=== PATIENT | male | born 1965 | race Caucasian/White ===

== ENCOUNTER 2016-08-11 05:47 | Day surgery (SDC) | payer OTHER ==
[~2016-08-11] VITALS: Ht 172.7 cm; Wt 90.7 kg
[2016-08-11] VITALS (7 sets, daily range): BP systolic 113–154; BP diastolic 54–79
[2016-08-11] MEDS ORDERED: LR 1,000 ML IV SCH ×2 (06:15→11:30)
[2016-08-11] MEDS ORDERED: dexameTHASONE 4 MG/ML 1ML VIAL (J1100) IV ONE (06:15)
[2016-08-11] MEDS ORDERED: CEFUROXIME SODIUM 1.5 GM in D5W MINI-BAG PLUS 50 ML IV ONE (06:15)
[2016-08-11] MEDS ORDERED: MIDAZOLAM INJ 2 MG/2 ML VIAL (J2250) As Ordered ONE (07:13)
[2016-08-11] MEDS ORDERED: fentaNYL 250 MCG/5 ML INJECTION (J3010) As Ordered ONE (07:14)
[2016-08-11] MEDS ORDERED: LIDOCAINE 2% INJ 100 MG/5 ML SDV (FOR ANES.) As Ordered ONE (07:15)
[2016-08-11] MEDS ORDERED: PROPOFOL 200 MG/20 ML VIAL As Ordered ONE ×2 (07:16→09:22)
[2016-08-11] MEDS ORDERED: ROCURONIUM BROMIDE 50 MG/5 ML VIAL As Ordered ONE (07:17)
[2016-08-11] MEDS ORDERED: REMIFENTANIL 1MG 3ML VIAL As Ordered ONE (07:20)
[2016-08-11] MEDS ORDERED: THROMBIN SOLN 20,000 UNITS KIT As Ordered ONE (07:40)
[2016-08-11] MEDS ORDERED: BACITRACIN PWD 50,000 UNITS VIAL As Ordered ONE (07:40)
[2016-08-11] MEDS ORDERED: dexameTHASONE 4 MG/ML 1ML VIAL (J1100) As Ordered ONE (08:16)
[2016-08-11] MEDS ORDERED: METOCLOPRAMIDE INJ 10MG/2ML VIAL (J2765) As Ordered ONE (08:18)
[2016-08-11] MEDS: CARISOPRODOL 350 MG TAB PO SCH ×3 (09:00→21:00)
[2016-08-11] MEDS ORDERED: ePHEDrine SULFATE 25 MG/5 ML(5MG/ML) SYRINGE As Ordered ONE ×2 (09:03→09:29)
[2016-08-11] MEDS ORDERED: ONDANSETRON 4MG/2ML VIAL (J2405) As Ordered ONE (09:40)
[2016-08-11] MEDS ORDERED: HYDROmorphone HCL 2 MG/ML 1ML VIAL (J1170) As Ordered ONE (09:50)
[2016-08-11] MEDS ORDERED: fentaNYL 100 MCG/2 ML INJECTION (J3010) As Ordered ONE (10:54)
[2016-08-11] MEDS: fentaNYL 100 MCG/2 ML INJECTION (J3010) IV PRN ×4 (11:05→11:20)
[2016-08-11] MEDS ORDERED: PERCOCET 5MG/325MG TAB As Ordered ONE (11:28)
[2016-08-11] MEDS ORDERED: PERCOCET 5MG/325MG TAB PO PRN ×2 (11:30→13:15)
[2016-08-11] MEDS ORDERED: ONDANSETRON 4MG/2ML VIAL (J2405) IV PRN ×2 (11:30→11:45)
[2016-08-11] MEDS ORDERED: MORPHINE 2 MG/ML 1ML SYRINGE IV PRN (11:30)
[2016-08-11] MEDS ORDERED: MORPHINE 4 MG/ML 1ML SYRINGE IV PRN (11:45)
[2016-08-11] MEDS ORDERED: NORCO, ANEXSIA 5/325MG TABLET (HYDROcodone/ACETAMINOPHEN) PO PRN ×2 (11:45)
[2016-08-11] MEDS ORDERED: ACETAMINOPHEN TAB 650MG DOSE (2X325MG) PO PRN (11:45)
[2016-08-11] MEDS: KCL 20MEQ IN D5/0.45NS 1000ML 1,000 ML IV SCH ×2 (12:43→21:45)
[2016-08-11] MEDS: PERCOCET 5MG/325MG TAB PO PRN ×2 (15:05→18:59)
[2016-08-11] MEDS: CEFUROXIME SODIUM 750 MG in D5W MINI-BAG PLUS 50 ML IV SCH ×2 (15:53→23:49)
--- NOTE | 2016-08-11 16:45 | REP ---
Partial thoracic spine series: Single view: History: Permanent dorsal column stimulator. 31.4 seconds of fluoroscopy time is reported. Findings: A single frontal view of the lower thoracic spine documents dorsal column stimulator lead placement. Signed by Nura Alexander MD 08/11/2016 06:06 P
[2016-08-12 00:04] VITALS: BP 114/59
[2016-08-12 04:11] VITALS: BP 108/55
[2016-08-12 08:00] VITALS: BP 117/57
[2016-08-12] MEDS: CEFUROXIME SODIUM 750 MG in D5W MINI-BAG PLUS 50 ML IV SCH (08:15)
[2016-08-12] MEDS: CARISOPRODOL 350 MG TAB PO SCH ×2 (08:16→10:21)
[2016-08-12] MEDS: PERCOCET 5MG/325MG TAB PO PRN (08:20)
[2016-08-12] MEDS ORDERED: CARI350T20 PO (09:17)
[2016-08-12] MEDS ORDERED: ACET30TAB PO (09:17)
[2016-08-12] MEDS ORDERED: KEFL500C7 PO (09:20)
[2016-08-12] MEDS ORDERED: SOMA350T PO (11:28)
--- NOTE | 2016-08-13 09:52 | RO ---
DATE OF PROCEDURE: 08/11/2016 PREOPERATIVE DIAGNOSES: Chronic back and leg pain. POSTOPERATIVE DIAGNOSES: Chronic back and leg pain. PROCEDURE: Placement of a spinal dorsal column stimulator. SURGEON: Dr. Vicente Griffith CRISIS COUNSELOR: ELISHA Hurtado ANESTHESIA: General endotracheal. DESCRIPTION OF PROCEDURE: After satisfactory general endotracheal anesthesia established, the patient positioned prone on the operating table bordered by two ventral horizontal chest rolls. The thoracolumbar was thoroughly prepped and widely draped in a sterile fashion. Attention first directed to the left lower posterior flank region, where a 6 cm transverse incision was made through subcutaneous fat tissue. Using the template as a guide, a pocket for the pulse generator was created at a depth of about 2.5 cm under the skin. Meticulous hemostasis was obtained and then the wound packed with wet sponges. Attention then directed to the thoracic midline incision, which had been determined using fluoroscopy prior to draping. The T9-T10 levels had been identified, and the incision was made extending from above the spinous process of T8 to below the spinous process of T9. A self-retaining retractor inserted in the thoracic fascia, incised along the spinous processes, paraspinal muscles dissected laterally. A self-retaining bilateral retractor was placed, and a placed at what was thought to be the inferior margin of the T9 lamina. This was confirmed with x-ray and then double-action rongeur used to remove a portion of the inferior spinous process at T8 and superior spinous process at T9. Ligamentum flavum dissected from the undersurface of the lamina, and then a small laminectomy carried out of the inferior portion of T8 and superior portion of T9. The epidural plastic dissector was then carefully advanced beneath the lamina and carefully advanced superiorly without encountering any resistance. This was then removed, and the spinal electrode advanced carefully in similar fashion. It was thought to be in almost satisfactory position with the first pass, and only a slight adjustment in cranial caudal direction was necessary. Once a proper placement of the electrode , the electrode impedances were tested and all found to be satisfactory. Stimulation of the electrode also found to be satisfactory as recorded through the spinal monitoring apparatus. Anchoring collars were then passed over the first and fourth electrode wires, which were anchored to the T10 spinous process using 2-0 silk. Electrode position again checked and found to be satisfactory. Subcutaneous tunnel then developed from the inferior extent of the thoracic incision to the medial aspect of the pulse generator incision, and the wires were passed. The first wire was coiled in the pulse generator pocket and then connected to the pulse generator. Satisfactory function was then confirmed wirelessly. Both incision irrigated, and meticulous hemostasis obtained with bipolar cautery. The flank incision closed using 0 Vicryl for the deep adipose closure and 3-0 Vicryls for the subcutaneous closure. Skin edges approximated with Dermabond. The thoracic incision closed using 0 Vicryl for the muscle and thoracic fascia closure. 0 Vicryl used for subcutaneous closure and skin approximated with Dermabond. The patient then taken to the recovery room, where he was examined and found to be moving both lower extremities with strength to command, having tolerated the procedure well.
[2016-08-13] MEDS ORDERED: OXYC1TAB23 PO (13:07)
== END 2016-08-12 11:45 | disposition home or self-care (01) ==
LOC: M SDC 05:47 → M PED 12:20 → M SDC 08-12 11:45
PROVIDERS: ATTEND Neurological Surgery
DX: M54.16 Radiculopathy, lumbar region (principal); G89.29 Other chronic pain; M96.1 Postlaminectomy syndrome, not elsewhere classified; M79.604 Pain in right leg; M79.605 Pain in left leg; F12.90 Cannabis use, unspecified, uncomplicated; Z98.1 Arthrodesis status; Z87.891 Personal history of nicotine dependence
CPT/HCPCS: 63655; 63685; 77002; 96374; A6024; C1767; C1820; J0697; J1100; J1170; J2250; J2405; J2765; J3010

== ENCOUNTER 2017-02-08 10:53 | Day surgery (SDC) | payer BC, OTHER ==
[~2017-02-08] VITALS: Ht 172.7 cm; Wt 98.0 kg
[~2017-02-08 10:53] MED LIST: ACET30TAB PO; CARI350T PO; KEFL500C17 PO; OXYC1TAB23 PO; SOMA350T PO
[2017-02-08] MEDS ORDERED: LIDOCAINE 1% MDV 20ML VIAL SC PRN (11:15)
[2017-02-08] MEDS ORDERED: LR 1,000 ML IV ONE (11:15)
[2017-02-08] MEDS ORDERED: BACITRACIN PWD 50,000 UNITS VIAL As Ordered ONE (14:34)
[2017-02-08] MEDS ORDERED: BACITRACIN OINT 30GM As Ordered ONE (14:34)
[2017-02-08] MEDS ORDERED: BUPIVACAINE LIPOSOME/PF 1.3% 20 ML VIAL (13.3MG/ML)(EXPAREL) As Ordered ONE (14:35)
[2017-02-08] MEDS ORDERED: BUPIVACAINE HCL 0.5% 10 ML VIAL As Ordered ONE (14:35)
[2017-02-08] MEDS ORDERED: LIDOCAINE 2% MDV 20 ML VIAL As Ordered ONE (15:00)
[2017-02-08] MEDS ORDERED: LIDOCAINE 2% INJ 100 MG/5 ML SDV (FOR ANES.) As Ordered ONE (15:09)
[2017-02-08] MEDS ORDERED: MIDAZOLAM INJ 2 MG/2 ML VIAL (J2250) As Ordered ONE (15:09)
[2017-02-08] MEDS ORDERED: ONDANSETRON 4MG/2ML VIAL (J2405) As Ordered ONE (15:09)
[2017-02-08] MEDS ORDERED: fentaNYL 100 MCG/2 ML INJECTION (J3010) As Ordered ONE (15:09)
[2017-02-08] MEDS ORDERED: PROPOFOL 200 MG/20 ML VIAL As Ordered ONE (15:19)
[2017-02-08 15:55] VITALS: BP 135/80
[2017-02-08] MEDS ORDERED: ACETAMINOPHEN TAB 650MG DOSE (2X325MG) PO SCH (16:00)
--- NOTE | 2017-02-08 19:35 | ROOPDOC ---
[facility] Report Of Operation Report of Operation DATE OF SURGERY: 02/08/2017 SURGEON: Dr. Freddy Cruz HAND TUBE BENDER: None PREOPERATIVE DIAGNOSIS: Non-functioning SCS system POSTOPERATIVE DIAGNOSIS: Same PROCEDURE PERFORMED: 1. IPG of SCS system removal. ANESTHESIA: iv + local. ESTIMATED BLOOD LOSS: None FINDINGS : IPG; no infection. DRAINS: 0 COMPLICATIONS: None. DISPOSITION: Stable to the PACU. INDICATIONS FOR THE PROCEDURE HISTORY: Mr. Henry is a 51 y/o M with past medical history of low back and leg pain, which was treated by implantation of spinal cord stimulator (SCS). Recently he developed pain in area of IPG and requested it removal. SURGICAL RISKS: The patient and her family were well apprised of all objectives, benefits, risks and potential complications of the procedure, including but not limited to : worsening of current status, the possible need for further procedures, the risk of infection, headaches, CSF leak, possible spinal nerve injury resulting in paralysis, infection, injury to major vessels causing hemorrhage, stroke, loss of language function, coma and even . No assurance was given whether symptoms would improve following the procedure. The surgery is technically difficult procedure and despite the significant discomfort for the patient and the best effort of the physician, the surgery may be unsuccessful or may need to be aborted. Informed consent was obtained and secured in the chart after the patient and family voiced understanding of these risks and decided to proceed with the operation. DESCRIPTION OF THE PROCEDURE The patient was transferred to the operating room. He was given preoperative prophylactic IV antibiotics. ANESTHESIA: The patient was sedated by the anesthesia service. POSITIONING: The patient was turned prone on his right side on hospital bed. All pressure points were carefully padded. OPERATIVE TECHNIQUE: The patient was prepped and draped in the standard sterile fashion. Surgical scar in flank were excised and IPG and leads coils have been removed without difficulty Hemostasis was meticulously achieved. The wounds were copiously irrigated with antibiotic saline solution. Subcutaneous tissue and skin was approximated with 1.0 Vycril suture. The skin was then approximated with surgical jose r. Bacitracin ointment was applied on incision before sterile wound dressing. All sponge counts, needle counts and instrument counts were correct at the end of the case times two. The patient tolerated the procedure well, without any complications and was transferred in stable condition to the recovery room. FREDDY CRUZ MD Feb 08, 2017 19:35
== END 2017-02-08 16:10 | disposition home or self-care (01) ==
LOC: M SDC 10:53 → EDSTATUS 13:30 → M SDC 16:10
PROVIDERS: ATTEND Neurological Surgery
DX: T85.193A Other mechanical complication of implanted electronic neurostimulator, generator, initial encounter (principal); T85.192A Other mechanical complication of implanted electronic neurostimulator of spinal cord electrode (lead), initial encounter; M54.5 Low back pain; Z79.899 Other long term (current) drug therapy; Y75.1 Therapeutic (nonsurgical) and rehabilitative neurological devices associated with adverse incidents; Y84.8 Other medical procedures as the cause of abnormal reaction of the patient, or of later complication, without mention of misadventure at the time of the procedure
CPT/HCPCS: 63661; 63688; J0690; J2250; J2405; J3010